=== PATIENT | male | born 1965 | race Two or more races ===

== ENCOUNTER 2023-06-14 21:32 | Emergency (ER) | payer OTHER, SELFPAY ==
[2023-06-14 21:34] VITALS: BP 186/97; BMI 29.9
--- NOTE | 2023-06-15 00:55 | ED.SKININJ ---
HPI-Injury
<ISMAEL Guzman - Last Filed: 06/15/23 01:14>
General
Chief Complaint: Skin Problem
Source: patient
Exam Limitations: none
Time Seen by Provider: 06/15/23 00:10
Nursing documentation reviewed up to this point in time: agreed with
Travel History
Have you had any contact with someone who has COVID-19?: No
Do you have any symptoms of coronavirus? Fever > 100 degrees, chills, cough, shortness of breath, sore throat, loss of taste or smell, muscle aches, or headache?: No
History of Present Illness-Injury
Is this injury a work related problem?: No
Is pt an associate of [facility]?: No
Initial Injury comments:
This is a 57 year old male who presents to the ER for painful lump on his left underarm x1 day. Patient reports the pain has worsened since yesterday but the lump has remained the same size. He denies any new deodorants, detergents, or body washes.
He denies any pus or drainage from the lump. He denies any fever, chills, rigors.
Past History
<ISMAEL Guzman - Last Filed: 06/15/23 01:14>
Past History
ED Past Medical History: HTN, Hypercholesterolemia and Other (COVID positive)
ED Past Surgical History: None
Social History
Tobacco: Non-smoker
Alcohol: None
Drug: None
Personal:
Living: with family
Employment: Employed
Family History
Family History: Diabetes
Review of Systems
<ISMAEL Guzman - Last Filed: 06/15/23 01:14>
Review of Systems
Allergies reviewed?: Yes
All Other Systems: Not applicable
Constitutional: Reports no symptoms
EENT: Reports no symptoms
Respiratory: Reports no symptoms
Cardiac: Reports no symptoms
ABD/GI: Reports no symptoms
: Reports no symptoms
Musculoskeletal: Reports no symptoms
Skin: Reports other (Painful lump on left underarm)
Neurological: Reports no symptoms
Endocrine: Reports no symptoms
Hematologic/Lymphatic: Reports no symptoms
Psychiatric: Reports no symptoms
Phy Exam
<ISMAEL Guzman - Last Filed: 06/15/23 01:14>
General Physical Exam
General Presentation: well appearing and no apparent distress
General Skin: warm and dry
General Habitus: normal
General Mental: alert
General Hydration: appears well hydrated
ENT Exam
ENT Exam: EOMI, pharynx normal, neck supple and normocephalic
Eye Exam
Eye Exam: PERRL, cornea clear and conjunctiva normal
Cardiovascular Exam
Cardiovascular Exam: regular rate/rhythm, no edema, no murmur and normal peripheral pulses
Pulmonary Exam
Pulmonary Exam: lungs clear, no respiratory distress, no rales, no crackles, no rhonchi, no stridor, no wheezing and no cough
Gastrointestinal Exam
Gastrointestinal Exam: normal bowel sounds, non tender, soft, no organomegaly, no pulsatile mass and non distended
Neurological Exam
Neurological Exam: alert, oriented x3, no motor deficits and speech normal
Musculoskeletal Exam
Musculoskeletal Exam: full ROM and no edema
Skin Exam
Skin Exam: normal color, warm/dry, no rash, no petechia and other (Inflamed lymph node on left underarm)
Psychiatric Exam
Psychiatric Exam: normal mood/affect
Course
<ISMAEL Guzman - Last Filed: 06/15/23 01:14>
Orders/Labs/Results
Orders:
Orders
06/15/23 00:55
Cephalexin Monohydrate [Keflex] 500 mg PO NOW STA
Vital Signs
Initial and Last Documented VS:
Initial Vital Signs
Temp Pulse Resp BP Pulse Ox
98.1 F 89 16 186/97 99
06/14/23 21:34 06/14/23 21:34 06/14/23 21:34 06/14/23 21:34 06/14/23 21:34
Last Documented Vital Signs
Temp Pulse Resp BP Pulse Ox
98.1 F 89 16 186/97 99
06/14/23 21:34 06/14/23 21:34 06/14/23 21:34 06/14/23 21:34 06/14/23 21:34
<Sherif Rabago DO - Last Filed: 06/15/23 01:47>
Orders/Labs/Results
Orders:
Orders
06/15/23 00:55
Cephalexin Monohydrate [Keflex] 500 mg PO NOW STA
Vital Signs
Initial and Last Documented VS:
Initial Vital Signs
Temp Pulse Resp BP Pulse Ox
98.1 F 89 16 186/97 99
06/14/23 21:34 06/14/23 21:34 06/14/23 21:34 06/14/23 21:34 06/14/23 21:34
Last Documented Vital Signs
Temp Pulse Resp BP Pulse Ox
98.1 F 89 16 186/97 99
06/14/23 21:34 06/14/23 21:34 06/14/23 21:34 06/14/23 21:34 06/14/23 21:34
<ISMAEL Guzman - Last Filed: 06/15/23 01:14>
MDM/Problems Addressed
Differential Diagnosis Includes:
Inflamed lymph node, abscess, hidradenitis suppurativa
Abscess was considered due to pain and redness surrounding the lump, however ultrasound findings were not consistent with abscess. Hidradenitis suppurativa less likely since it would be expected to see multiple lesions and a history of recurrent
lesions. Ultrasound findings consistent with echogenic with hypoechoic cortex which is most consistent with lymph node.
<Sherif Rabago DO - Last Filed: 06/15/23 01:47>
*Critical Care Note
Total Time (30-74mins, 75-104mins- exclusive of procedures): Not Applicable
ED Attending Note
<ISMAEL Guzman - Last Filed: 06/15/23 01:14>
-
Portions of this chart may have been created with voice recognition software.� Occasional wrong word or��sound alike� substitutions may have occurred due to the inherent limitations of voice recognition software.
Discharge Plan
Departure
Patient Disposition: Home (Routine Discharge)
Date of Disposition: 06/15/23
Time of Disposition: 01:02
Patient with high blood pressure during this ER visit?: Yes
Condition: Good
Discharge Problem:
Cellulitis
Instructions: Skin Rash (DC), Cellulitis (Skin Infection), Adult (DC), BLOOD PRESSURE
Prescriptions:
New
cephalexin 500 mg capsule
500 mg PO BID 7 Days Qty: 14 0RF
No Action
simvastatin 40 MG tablet
40 mg PO DAILY
losartan 25 MG tablet
25 mg PO DAILY
Referrals:
Mayra Murguia DO [Family Provider] -
Activity Restrictions/Additional Instructions:
It was a pleasure meeting you and taking part in your care. We hope for your continued healing and wellness.
Please read discharge instructions in their entirety. However, they are for general education and may not describe your exact diagnosis at discharge. Information on your ER visit and medical conditions were discussed with you along with appropriate
follow up information...
If indicated, please take your medications as instructed and indicated on discharge paperwork.
Please schedule a follow up appointment as directed. Call to schedule an appointment
Please return to the emergency department with ANY change in, persisting, or worsening of symptoms. If any of your symptoms do not improve, or persist, or become more severe within 6-12 hours, please return to the emergency department for further
care.
Please return to the emergency department if you develop a headache, neck pain/stiffness, fever greater than 100.4F, chest pain, shortness of breath, persistent nausea, vomiting, slurred speech, difficulty walking, numbness/tingling, weakness, signs
of infection or any other symptoms that are worrisome to you.
If you have any questions or concerns please do not hesitate to call the Hospital at or E-mail me directly at [email or web address]
Interventions
Interventions:
*Risk Screen - Suicide Last Done: 06/14/23 21:34
*Neglect/Abuse Screening Last Done: 06/14/23 21:34
*ED COVID-19 Vaccine History Last Done: 06/14/23 21:34
*Nursing Disposition Last Done: 06/15/23 01:12
ED-Skin Assessment Last Done: 06/14/23 22:17
Discharge Date and Time
Discharge Date/Time: 06/15/23 01:12
Print Language: IVORIAN
[2023-06-15] MEDS: KEFLEX 500 MG PO (01:06)
== END 2023-06-15 01:12 | disposition home or self-care (01) ==
LOC: EMR 21:32
PROVIDERS: EMERGENCY PHYSICIAN Student in an Organized Health Care Education/Training Program; FAMILY PHYSICIAN Family Medicine
DX: L03.114 Cellulitis of left upper limb (principal); I10 Essential (primary) hypertension; E78.00 Pure hypercholesterolemia, unspecified; Z86.16 Personal history of COVID-19
CPT/HCPCS: 99283

== ENCOUNTER 2023-08-03 15:54 | Emergency (ER) | payer OTHER, SELFPAY ==
[2023-08-03 15:56] VITALS: BP 155/90
--- NOTE | 2023-08-03 16:19 | EDRN ---
Pt reports that he cannot see the snellen chart letters without his glass which he did not bring.
--- NOTE | 2023-08-03 18:22 | ED.GENMED ---
History of Present Illness
General
Chief Complaint: Eye Problems
Source: patient
Exam Limitations: none
Time Seen by Provider: 08/03/23 16:25
Nursing documentation reviewed up to this point in time: agreed with
Travel History
Have you had any contact with someone who has COVID-19?: No
Do you have any symptoms of coronavirus? Fever > 100 degrees, chills, cough, shortness of breath, sore throat, loss of taste or smell, muscle aches, or headache?: No
History of Present Illness
History of Present Illness:
58-year-old male past medical history of hypertension hyperlipidemia presenting to the emergency department with initial vision changes including seeing tiny dots in his left eye over the last few hours but noticed a central ring of black in his eye
over the past hour or so. This prompted come to the ER. Denies any similar symptoms in the past no trauma to the eye no additional symptoms otherwise.
Past History
Past History
ED Past Medical History: HTN, Hypercholesterolemia and Other (COVID positive)
ED Past Surgical History: None
Social History
Tobacco: Non-smoker
Alcohol: None
Drug: None
Personal:
Living: with family
Employment: Employed
Family History
Family History: Diabetes
Review of Systems
Review of Systems
Allergies reviewed?: Yes
All Other Systems: ROS reviewed and negative except as documented in HPI and ROS
Phy Exam
Physical Exam
Physical Exam:
GENERAL: Alert , in no apparent distress
EYE: Normal eye pressures all below 20 to the eyes bilaterally, able to see me holding my fingers to both eyes individually. Normal pupil reaction normal anterior chamber on slit-lamp examination. Pupils equal and reactive
NECK: Supple, no significant adenopathy.
ENT: o/p clr, mmm.
CARDIAC: Regular rate and rhythm .
LUNGS: Clear breath sounds bilaterally, no acute respiratory distress, no wheezes/rales/rhonchi
ABDOMEN: Soft, without focal tenderness, no r/g, no cvat
NEUROLOGICAL: Alert and oriented, no focal neuro deficits
SKIN: Warm and dry, skin intact.
MUSCULOSKELETAL: No edema, well perfused.
PSYCH: Normal and appropriate interaction.
Course
Vital Signs
Initial and Last Documented VS:
Initial Vital Signs
Temp Pulse Resp BP Pulse Ox
98.8 F 102 16 155/90 98
08/03/23 15:56 08/03/23 15:56 08/03/23 15:56 08/03/23 15:56 08/03/23 15:56
Last Documented Vital Signs
Temp Pulse Resp BP Pulse Ox
98.8 F 102 16 155/90 98
08/03/23 15:56 08/03/23 15:56 08/03/23 15:56 08/03/23 15:56 08/03/23 15:56
MDM/Problems Addressed
MDM/Problems Addressed:
58-year-old male presenting to the emergency department today with concerns of seeing tiny dots to his left-sided vision over the past few hours and then noticed a black ring in his vision more recently. Here vital signs normal no additional
symptoms no trauma to the area visual examination without acute findings other than bedside ultrasound performed that showed some abnormalities to the posterior of the potentially concerning for retinal detachment Case discussed with ophthalmology
the recommends going directly to [facility] eye. Patient was notified of this he claims that he has a ride from his and will go there directly for assessment. Will was notified of his arrival.
*Critical Care Note
Total Time (30-74mins, 75-104mins- exclusive of procedures): Not Applicable
ED Attending Note
-
Portions of this chart may have been created with voice recognition software.� Occasional wrong word or��sound alike� substitutions may have occurred due to the inherent limitations of voice recognition software.
Discharge Plan
Departure
Patient Disposition: Other
Date of Disposition: 08/03/23
Time of Disposition: 18:28
Patient with high blood pressure during this ER visit?: No
Condition: Good
Covid-19: Not Applicable
Discharge Problem:
Vision changes
Instructions: Floaters in the Eye
Prescriptions:
No Action
simvastatin 40 MG tablet
40 mg PO DAILY
losartan 25 MG tablet
25 mg PO DAILY
cephalexin 500 mg capsule
500 mg PO BID 7 Days Qty: 14 0RF
Referrals:
Mayra Murguia DO [Family Provider] -
Kinsey Tovar MD [Active] - Follow up in 5-7 days
Activity Restrictions/Additional Instructions:
You came to the emergency department today with concerns of visual changes. There is some concern for possible retinal detachment. You will need further assessment by an commissioned security officer. Please go immediately to [facility]. Located at
[address] [place] [address]. Phone number is [phone]. Otherwise you can follow-up with ophthalmology but it is advised to immediately go to [facility] for assessment of this.
Interventions
Interventions:
*Risk Screen - Suicide Last Done: 08/03/23 15:56
*General Assessment Last Done: 08/03/23 15:56
*Neglect/Abuse Screening Last Done: 08/03/23 15:56
Discharge Date and Time
Print Language: GREENLANDIC
== END 2023-08-03 18:49 | disposition home or self-care (01) ==
LOC: EMR 15:54
PROVIDERS: EMERGENCY PHYSICIAN Emergency Medicine; FAMILY PHYSICIAN Family Medicine
DX: H53.8 Other visual disturbances (principal); I10 Essential (primary) hypertension; E78.00 Pure hypercholesterolemia, unspecified
CPT/HCPCS: 99283

== ENCOUNTER 2023-12-04 23:05 | Emergency (ER) | payer OTHER, SELFPAY ==
[2023-12-04 23:20] VITALS: BP 161/88
[2023-12-05 01:32] VITALS: BP 163/85
[2023-12-05 01:39] LABS: % Basophils 0.4 % (0-2); % Eosinophils 3.4 % (0-6); % Immature Granulocytes 0.3 % (0-0.5); % Lymphocytes 26.7 % (20.5-51.1); % Monocytes 6.6 % (1.7-9.3); % Neutrophils 62.6 % (42.2-75.2); Absolute Eosinophils 0.2 10^3/uL (0-0.7); Absolute Lymphocytes 1.9 10^3/uL (1.2-3.4); Absolute Monocytes 0.5 10^3/uL (0.1-0.6); Absolute Neutrophils 4.5 10^3/uL (1.4-6.5); Hematocrit 39.5 % (39.0-52.0); Mean Corp Hgb Conc. 32.9 g/dL (33.0-37.0); Mean Corpuscular Hgb 27.1 pg (27.0-31.0); Mean Corpuscular Volume 82.3 fL (80.0-94.0); Mean Platelet Volume 9.8 fL (7.4-10.4); Nucleated Red Blood Cells % 0 % (-); Platelet Count 145 10^3/uL (130-400); Red Cell Dist. Width 15.2 % (11.5-14.5); White Blood Cell Count 7.2 10^3/uL (4.8-10.8)
[2023-12-05 01:51] LABS: ALT (SGPT) 26 U/L (0-50); AST (SGOT) 33 U/L (17-59); Albumin 4.4 g/dl (3.5-5.0); Alkaline Phosphatase 67 U/L (38-126); Blood Urea Nitrogen 17 mg/dl (9-20); Calcium 9.6 mg/dl (8.4-10.2); Carbon Dioxide 27 mmol/L (22-30); Chloride 103 mmol/L (98-107); Glucose 103 mg/dl (70-99); Lipase 391 U/L (23-300); Potassium 4.1 mmol/L (3.5-5.1); Sodium 141 mmol/L (135-145); Total Bilirubin 0.4 mg/dl (0.2-1.3); Total Protein 6.9 g/dl (6.3-8.2); eGFR > 60.00
[2023-12-05 01:54] LABS: COVID-19 Antigen Negative (Negative)
--- NOTE | 2023-12-05 03:14 | ED.GENMED ---
History of Present Illness
General
Chief Complaint: Abdominal Pain
Source: patient
Exam Limitations: none
Time Seen by Provider: 12/05/23 03:08
History of Present Illness
History of Present Illness:
See MDM
Past History
Past History
ED Past Medical History: HTN, Hypercholesterolemia and Other (COVID positive)
ED Past Surgical History: None
Social History
Tobacco: Non-smoker
Alcohol: None
Drug: None
Personal:
Living: with family
Employment: Employed
Family History
Family History: Diabetes
Phy Exam
Physical Exam
Physical Exam:
See MDM
Course
Orders/Labs/Results
Orders:
Orders
12/04/23 23:23
IV Insert/Care/Rem.- Treatment PRN
Straight cath- Treatment ONCE
Complete Blood Count/With Diff Urgent
Comprehensive Metabolic Panel Urgent
Lipase Urgent
Urinalysis Reflex To Culture Urgent
Date Specimen was Collected: 12/04/23
Time Specimen was Collected: 23:23
12/05/23 01:29
COVID-19 Antigen Urgent
Source: Nasal Swab
Influenza A+B Rapid Molecular Urgent
PATEL Source: Nasal Swab
Specimen Description:
12/05/23 03:08
CT Abd/pelvis W Iv Cont Urgent
Comment:
Reason For Exam: RLQ pain
12/05/23 03:14
Ketorolac [Toradol] 30 mg IV NOW STA
Abnormal Lab Results
12/05/23
01:29
MCHC 32.9 L g/dL
(33.0-37.0)
RDW 15.2 H %
(11.5-14.5)
Glucose 103 H mg/dl
(70-99)
Lipase 391 H U/L
(23-300)
12/05/23 01:29
12/05/23 01:29
Vital Signs
Initial and Last Documented VS:
Initial Vital Signs
Temp Pulse Resp BP Pulse Ox
98.4 F 79 20 161/88 97
12/04/23 23:20 12/04/23 23:20 12/04/23 23:20 12/04/23 23:20 12/04/23 23:20
Last Documented Vital Signs
Temp Pulse Resp BP Pulse Ox
98.1 F 72 20 135/77 97
12/05/23 01:32 12/05/23 01:32 12/05/23 01:32 12/05/23 03:19 12/05/23 03:21
MDM/Problems Addressed
Differential Diagnosis Includes:
HPI and MDM Narrative:
58-year-old male presenting with right-sided abdominal pain. He recently returned from a trip from [place]. He developed mild nausea and diarrhea. He is unsure if this is a viral infection or something else. Blood work was done prior to my
evaluation. Labs appear noncontributory other than mildly elevated lipase. Given the abdominal pain, will obtain CT. Will give dose of Toradol
Physical exam
General: Well appearing and non-toxic
HEENT: protecting airway
Neck: appears supple
CV: No evidence of cyanosis
Resp: No accessory muscle use
Abd: Non-distended. Very mild right upper and right lower quadrant abdominal tenderness. No rebound
Extremities: No deformities
Neuro: alert
Psych: Normal affect
Skin: Intact
Problems Addressed including Acute and Chronic Conditions affecting care:
1. Abdominal pain
Acuity: acute
Prognosis: stable
Details: Given the pain, will obtain CT
Updates
CT suggest possibly minimal diverticulitis. Will start Augmentin. Discussed follow-up with PCP and GI given the elevated lipase and the diverticulitis
Differential Diagnosis (but not limited to): Pancreatitis, gallbladder stones, kidney stones, acute sinusitis, colitis, viral gastroenteritis
Testing considered: Right upper quadrant ultrasound
Drug therapy (if applicable): OTC meds, please see d/c instruction regarding Rx drugs
Amount and/or Complexity of Data Reviewed
Clinical info obtained from: Patient
External data reviewed: N/A
Labs I independently reviewed (but not limited to): White blood cell count normal, lipase mildly elevated
Radiology: The CT scan was personally and independently reviewed. In addition, official CT report reviewed.
Pulse Ox: not hypoxic
EKG independently reviewed: N/A
Corrections Officer: N/A
Critical Care: N/A
Risk of Complication:
Social Determinants of health: Good social support
Discussed with other providers: N/A
Escalation of Care includes Admit/Obs: After being observed in the Emergency Department, pt stable for discharge.
Occasional wrong word or 'sound a like' substitutions may have occurred due to the inherent limitations of voice recognition software. Read the chart carefully and recognize, using context, where substitutions have occurred.
*Critical Care Note
Total Time (30-74mins, 75-104mins- exclusive of procedures): Not Applicable
ED Attending Note
-
Portions of this chart may have been created with voice recognition software.� Occasional wrong word or��sound alike� substitutions may have occurred due to the inherent limitations of voice recognition software.
Discharge Plan
Departure
Patient Disposition: Home (Routine Discharge)
Date of Disposition: 12/05/23
Time of Disposition: 04:40
Patient with high blood pressure during this ER visit?: No
Discharge Problem:
Diverticulitis
Prescriptions:
New
amoxicillin-pot clavulanate 875-125 mg tablet
1 tab PO BID Qty: 14 0RF
No Action
simvastatin 40 MG tablet
40 mg PO DAILY
losartan 25 MG tablet
25 mg PO DAILY
cephalexin 500 mg capsule
500 mg PO BID 7 Days Qty: 14 0RF
Referrals:
Mayra Murguia DO [Family Provider] -
John Albarado MD [Active] -
Activity Restrictions/Additional Instructions:
Please return for any worsening symptoms.
You may return at any time if you have further concerns.
Please follow up with your doctor at the first available appointment, preferably this week.
Please make an appointment to see the respiratory care assistant.
Thank you for choosing [facility].
Interventions
Interventions:
*General Assessment Last Done: 12/04/23 23:20
*Neglect/Abuse Screening Last Done: 12/05/23 01:32
*ED COVID-19 Vaccine History Last Done: 12/05/23 01:32
Discharge Date and Time
Print Language: SUDANESE
[2023-12-05 03:18] VITALS: BMI 28.9
[2023-12-05 03:19] VITALS: BP 135/77
[2023-12-05 03:38] LABS: Urine Albumin Negative (Neg - Trace); Urine Bilirubin Negative (Negative); Urine Character Clear (Clear); Urine Color Yellow; Urine Glucose Negative (Negative); Urine Ketone Negative (Negative); Urine Leukocyte Negative (Negative); Urine Nitrite Negative (Negative); Urine Occult Blood Negative (Negative); Urine Specific Gravity 1.015 (<1.030); Urine Urobilinogen Negative (Neg - 1+)
[2023-12-05] MEDS: TORADOL 30 MG IV (04:08)
[2023-12-05] MEDS: AUGMENTIN 875 MG/125 MG 1 TABLET PO (04:57)
== END 2023-12-05 05:12 | disposition home or self-care (01) ==
LOC: EMR 23:05
PROVIDERS: EMERGENCY PHYSICIAN Student in an Organized Health Care Education/Training Program; FAMILY PHYSICIAN Family Medicine
DX: K57.32 Diverticulitis of large intestine without perforation or abscess without bleeding (principal); Z11.52 Encounter for screening for COVID-19; I10 Essential (primary) hypertension; E78.00 Pure hypercholesterolemia, unspecified; Z86.16 Personal history of COVID-19
CPT/HCPCS: 99284; 96374; 74177; 80053; 81003; 83690; 85025; 87502; 87811; Q9967

== ENCOUNTER 2024-11-16 15:55 | Emergency (ER) | payer OTHER, SELFPAY ==
[2024-11-16 16:13] VITALS: BP 191/95
[2024-11-16 16:31] LABS: Urine Character Clear (Clear)
[2024-11-16 16:35] LABS: Hematocrit 40.8 % (39.0-52.0); Hemoglobin 13.3 g/dL (13.0-18.0); Mean Corp Hgb Conc. 32.6 g/dL (33.0-37.0); Mean Corpuscular Volume 82.3 fL (80.0-94.0); Nucleated Red Blood Cells % 0 % (-); Platelet Count 144 10^3/uL (130-400); Red Cell Dist. Width 15.0 % (11.5-14.5)
[2024-11-16 16:40] LABS: Urine Squamous Cell 0-2 /LPF (Few); Urine White Cell 0-2 /HPF (0-5)
[2024-11-16 16:41] LABS: ALT (SGPT) 26 U/L (0-50); AST (SGOT) 24 U/L (17-59); Albumin 4.5 g/dl (3.5-5.0); Alkaline Phosphatase 68 U/L (38-126); Blood Urea Nitrogen 24 mg/dl (9-20); Calcium 9.3 mg/dl (8.4-10.2); Carbon Dioxide 27 mmol/L (22-30); Chloride 105 mmol/L (98-107); Glucose 105 mg/dl (70-99); Potassium 4.1 mmol/L (3.5-5.1); Sodium 139 mmol/L (135-145); Total Protein 7.4 g/dl (6.3-8.2); eGFR > 60.00
--- NOTE | 2024-11-16 19:30 | ED.GENMED ---
History of Present Illness
General
Chief Complaint: Flank Pain
Time Seen by Provider: 11/16/24 19:30
History of Present Illness
History of Present Illness:
FOCUSED PAST MEDICAL HISTORY
- High blood pressure, hyperlipidemia
REVIEW OF OLD RECORDS
- The patient was admitted with high blood pressure in 2020 and was seen in the ED in 2023 with diverticulitis
Note:
CHIEF COMPLAINT(S)
Pain in the flank region.
HISTORY OF PRESENT ILLNESS
The patient is a 59-year-old male presenting with flank pain for the past week to 10 days. The pain onset was gradual. Initially, the patient did not consider it severe and consulted their family doctor, who ordered blood tests for kidney stones and
a urine test. According to the patient, both tests were normal at that time. However, upon presentation today, the urine test reveals hematuria. The pain has shifted from the right side to the left side and migrates from the flank to the back. The
patient describes the pain becoming more pronounced when sitting or transitioning to standing, suggesting a possible musculoskeletal origin. Tapping in the lumbar area elicited slight tenderness on the left side. There is no associated rash or skin
changes suggestive of shingles. The patient has a history of diverticulitis two years ago but denies current abdominal pain similar to past episodes.
EXTERNAL RECORDS REVIEWED
Previous physician evaluation noted normal blood and urine tests interpreted for kidney stones, per the patients report.
CHRONIC MEDICAL CONDITIONS SIGNIFICANTLY AFFECTING CARE
History of diverticulitis.
REVIEW OF SYSTEMS
- Urinary: Hematuria noted on urinalysis today.
- Musculoskeletal: Flank pain exacerbated by changes in position, indicative of musculoskeletal pain.
PHYSICAL EXAM
General: Alert, no acute distress. He has been pacing around the room but otherwise appears comfortable and declines analgesia
Skin: Warm, dry. No rashes noted.
Head: Normocephalic, atraumatic.
Neck: Supple, trachea midline.
Eyes, Ears, Nose, Mouth, and Throat: Oral mucosa moist.
Cardiovascular: Normal peripheral perfusion, No edema.
Respiratory: Respirations are non-labored.
Gastrointestinal: Abdomen nondistended, no abdominal tenderness on palpation.
Back: There is no CVA tenderness, no midline tenderness
Musculoskeletal: Normal range of motion, normal strength.
Neurological: Alert and oriented to person, place, time, and situation, No focal neurological deficit observed.
Psychiatric: Cooperative, appropriate mood & affect.
PROBLEM LIST
Acute Problems:
- Flank pain with hematuria, possible renal or musculoskeletal etiology.
Chronic Problems:
- History of diverticulitis.
PLAN
- Proceed with a computed tomography scan to evaluate for signs of nephrolithiasis or other abnormalities.
- Pain management as necessary; patient declined medication at present.
DIFFERENTIAL DIAGNOSIS
The Differential Diagnosis includes, in no particular order and is not limited to:
- Nephrolithiasis
- Musculoskeletal pain
- Urinary tract infection
- Pyelonephritis
- Renal cyst
- Diverticulitis
- Herpes zoster (no rash currently observed)
- Ureteral colic
- Renal tumor
- Abdominal aortic aneurysm (less likely given current symptoms)
RADIOLOGY
- CT abdomen pelvis obtained which shows no acute abnormality, a large left renal cyst is noted, 3 mm nonobstructing right renal stone is noted
LABS
- CBC normal, chemistries unremarkable, 1+ blood noted in urinalysis
UPDATE
-SUMMARY OF ENCOUNTER
The patient, a 59-year-old male, was seen in the emergency department due to flank pain persisting for the past week to [address] scan was conducted revealing a small kidney stone in the right kidney, which is not currently causing any
obstruction or correlated pain as its still within the kidney. Additionally, a large cyst was identified on the left side; however, it is deemed as unlikely to be causing the pain or requiring surgical intervention. Given these findings, the pain is
considered unlikely to be related to the kidney stone or cyst, and no immediate surgical procedures are necessary. Dietary management with increased water intake is advised, and pxsi-fgg-wxbvope ibuprofen (Motrin) is suggested for pain management.
PLAN
The patient is advised to increase hydration and try rwmy-gpb-ltcpvbd ibuprofen (Motrin) for pain relief. The patient should monitor symptoms and follow up with a primary care provider if needed. The patient is provided reassurance that the cyst and
kidney stone are not likely the cause of the current pain symptoms.
INDEPENDENT REVIEW OF LABS AND INTERPRETATION OF TESTS
My independent review of the CT scan indicates the presence of a small kidney stone in the right kidney and a large renal cyst on the left side. The radiologists report noted these findings, confirming my assessment.
PATIENT EDUCATION AND COUNSELING
The patient was educated about the likely causes of the current symptoms and was reassured that the cyst and kidney stone do not require immediate intervention. The importance of adequate hydration was emphasized, and ivdv-gom-qgolrmh pain relief
was suggested.
FOLLOW-UP INSTRUCTIONS
The patient was advised to follow up with a primary care provider if symptoms persist or worsen. Referral to a urologist may be considered for further evaluation if necessary.
MEDICATION RECONCILIATION
Qdsp-vvd-cphoiwa ibuprofen (Motrin) was recommended for pain management.
MEDICAL DECISION MAKING
-Number and Complexity of Problems Addressed: Chronic conditions affecting care include a history of diverticulitis. The differential diagnosis considered includes nephrolithiasis, musculoskeletal pain, urinary tract infection, pyelonephritis, renal
cyst, diverticulitis, herpes zoster, ureteral colic, renal tumor, and abdominal aortic aneurysm.
-Data:
Category 1: My review of the CT scan indicated a small kidney stone in the right kidney and a large cyst on the left side.
-Risk: Consideration of Admission/Observation: Escalation of care including admission/observation was considered given the complexity and risk of the patients presenting complaint, exam findings, and their underlying comorbidities. However,
ultimately I feel the patient is safe for outpatient management with close follow-up. Reasoning: Work-up is reassuring, does not reveal any acute life/organ-threatening processes, patients symptoms are well controlled upon reevaluation,
reexamination is reassuring, vitals are stable, patient agreeable with discharge, and reliable for follow-up.
DIAGNOSIS
-Abdominal pain
Past History
Past History
ED Past Medical History: HTN, Hypercholesterolemia and Other (COVID positive)
ED Past Surgical History: None
Social History
Tobacco: Non-smoker
Alcohol: None
Drug: None
Personal:
Living: with family
Employment: Employed
Family History
Family History: Diabetes
Phy Exam
Physical Exam
Physical Exam:
See HPI
Course
Orders/Labs/Results
Orders:
Orders
11/16/24 16:19
Complete Blood Count/With Diff Urgent
Comprehensive Metabolic Panel Urgent
Urinalysis Reflex To Culture Urgent
Date Specimen was Collected: 11/16/24
Time Specimen was Collected: 16:12
Urine Microscopic Reflex Cult Urgent
11/16/24 19:36
CT Abd/pel Without Iv Or Oral Urgent
Comment:
Reason For Exam: hematuria L flank pain
Abnormal Lab Results
11/16/24
16:19
MCH 26.8 L pg
(27.0-31.0)
MCHC 32.6 L g/dL
(33.0-37.0)
RDW 15.0 H %
(11.5-14.5)
MPV 10.8 H fL
(7.4-10.4)
Absolute Monos (auto) 0.7 H 10^3/uL
(0.1-0.6)
BUN 24 H mg/dl
(9-20)
Glucose 105 H mg/dl
(70-99)
Ur Occult Blood Reflex 1+ A
(Negative)
Urine RBC 3-6 A /HPF
(0-2)
Urine Bacteria (Reflex) Few A
(Negative)
11/16/24 16:19
11/16/24 16:19
Vital Signs
Initial and Last Documented VS:
Initial Vital Signs
Temp Pulse Resp BP Pulse Ox
37.1 C 102 18 191/95 99
11/16/24 16:13 11/16/24 16:13 11/16/24 16:13 11/16/24 16:13 11/16/24 16:13
Last Documented Vital Signs
Temp Pulse Resp BP Pulse Ox
36.9 C 84 18 147/94 98
11/16/24 20:27 11/16/24 20:27 11/16/24 20:27 11/16/24 20:27 11/16/24 20:27
*Pulse Oximetry
SaO2: 99
Oxygen Mode of Delivery: Room air
Patient hypoxic: no
*Critical Care Note
Total Time (30-74mins, 75-104mins- exclusive of procedures): Not Applicable
ED Attending Note
-
Portions of this chart may have been created with voice recognition software.� Occasional wrong word or��sound alike� substitutions may have occurred due to the inherent limitations of voice recognition software.
Discharge Plan
Departure
Prescriptions:
No Action
simvastatin 40 MG tablet
40 mg PO DAILY
losartan 25 MG tablet
25 mg PO DAILY
cephalexin 500 mg capsule
500 mg PO BID 7 Days Qty: 14 0RF
amoxicillin-pot clavulanate 875-125 mg tablet
1 tab PO BID Qty: 14 0RF
Referrals:
Mayra Murguia DO [Family Provider, Family Practice]
Interventions
Interventions:
*Risk Screen - Suicide Last Done: 11/16/24 16:13
*General Assessment Last Done: 11/16/24 16:13
*Neglect/Abuse Screening Last Done: 11/16/24 16:13
*ED- Fall Risk Assessment Last Done: 11/16/24 20:30
*ED COVID-19 Vaccine History Last Done: 11/16/24 16:13
[facility]-Lmptdk-Psjzzizeyv Assessment Last Done: 11/16/24 20:28
ED-Male Genitourinary Assessment Last Done: 11/16/24 20:28
Discharge Date and Time
Print Language: YORUBA
[2024-11-16 20:27] VITALS: BP 147/94
== END 2024-11-16 21:50 | disposition home or self-care (01) ==
LOC: EMR 15:55
PROVIDERS: Student in an Organized Health Care Education/Training Program; EMERGENCY PHYSICIAN Emergency Medicine; FAMILY PHYSICIAN Family Medicine
DX: R10.9 Unspecified abdominal pain (principal); N20.0 Calculus of kidney; N28.1 Cyst of kidney, acquired; I10 Essential (primary) hypertension; E78.00 Pure hypercholesterolemia, unspecified; Z86.16 Personal history of COVID-19
CPT/HCPCS: 99284; 74176; 80053; 81003; 81015; 85025